=== PATIENT | female | born 1970 | race Two or more races ===

== ENCOUNTER 2017-07-08 11:22 | Emergency (ER) | payer BC ==
[~2017-07-08] VITALS: Ht 157.5 cm; Wt 74.2 kg
[2017-07-08 11:47] LABS: BASOPHIL (%) 0.6 % (0-1); BASOPHIL COUNT 0.1 K/uL (0-0.1); EOSINOPHIL (%) 1.8 % (0-5); EOSINOPHIL COUNT 0.2 K/uL (0-0.3); HEMOGLOBIN 12.7 G/DL (11.9-15.5); IMMATURE GRANULOCYTE (%) 0.6 % (0.0-0.7); LYMPHOCYTE (%) 10.5 % (15-42); LYMPHOCYTE COUNT 1.3 K/uL (1.0-2.8); MCH 28.8 PG (29.0-34.0); MCHC 33.4 G/DL (30.0-36.0); MCV 86.2 FL (83-99); MONOCYTE (%) 4.3 % (3-12); MONOCYTE COUNT 0.5 K/uL (0-0.8); NEUTROPHIL (%) 82.2 % (45-76); NEUTROPHIL COUNT 10.2 K/uL (1.8-6.4); PLATELET COUNT 244 K/uL (156-360); RBC DIS.WIDTH-CV 13.9 % (11.8-14.6); RED BLOOD COUNT 4.41 M/uL (3.80-5.20); WHITE BLOOD COUNT 12.4 K/uL (4.1-10.2)
[2017-07-08 11:56] LABS: ALBUMIN 3.9 g/dL (3.2-4.8); CHLORIDE 106 mEq/L (99-109); POTASSIUM 4.1 mEq/L (3.7-5.4); SODIUM 139 mEq/L (136-147)
[2017-07-08 11:58] LABS: GLUCOSE 116 mg/dL (70-99)
[2017-07-08 12:00] LABS: TOTAL BILIRUBIN 0.6 mg/dL (0.0-1.0)
[2017-07-08 12:02] LABS: ALKALINE PHOSPHATASE 107 IU/L (3-129); CREATININE 0.7 mg/dL (0.6-1.3)
[2017-07-08 12:03] LABS: UREA NITROGEN (BUN) 15 mg/dL (9-23)
[2017-07-08 12:04] LABS: AST (GOT) 98 IU/L (2-34)
[2017-07-08 12:05] LABS: ALT (GPT) 49 IU/L (3-49); LIPASE 22 U/L (1.0-51.0)
[2017-07-08 12:06] LABS: GFR ESTIMATE (CALCULATED) > 59 mL/min/
[2017-07-08 12:17] LABS: APPEARANCE CLEAR ((CLEAR)); BILIRUBIN NEGATIVE; BLOOD SMALL; COLOR YELLOW ((YELLOW)); GLUCOSE (STRIP) NEGATIVE; KETONES NEGATIVE; LEUKOCYTES NEGATIVE; NITRITE NEGATIVE; PROTEIN (STRIP) NEGATIVE; SPECIFIC GRAVITY 1.012 (1.000-1.030); UROBILINOGEN 0.2 MG/DL (0.2-1.0)
[2017-07-08 12:27] LABS: BACTERIA RARE /HPF; EPITHELIAL CELLS RARE /HPF; MUCUS NONE SEEN /LPF; RED BLOOD CELLS 0-5 /HPF (0-5); UCUL ADDED? NO; WHITE BLOOD CELLS 0-5 /HPF (0-5)
[2017-07-08] MEDS ORDERED: PRILOSEC OTC20 MG PO (16:10)
[2017-07-08] MEDS ORDERED: CARAFATE100 MG/ML PO (16:10)
[2017-07-08 16:53] VITALS: BP 115/104
== END 2017-07-08 16:57 | disposition home or self-care (01) ==
LOC: EME 11:22
PROVIDERS: Emergency Medicine
DX: R10.13 Epigastric pain (principal); R10.11 Right upper quadrant pain; Z90.49 Acquired absence of other specified parts of digestive tract
CPT/HCPCS: 74177; 80053; 81003; 81025; 83690; 85025; 99281; 99285; J1885; J2405